=== PATIENT | female | born 1950 | race African-American/Black ===

== ENCOUNTER 2018-09-30 05:09 | Day surgery (SDC) | payer MEDICARE, OTHER ==
--- NOTE | 2018-09-27 10:08 | Opthalmology H&P ---
Ophthalmology H&P H&P Chief Complaint: decreased vision in left eye HPI Vision Affects Ability to: read, drive, manage personal affairs HPI Narrative Blurry Vision Exam Visual Acuity: OD 20/160 OS 20/160 Tension: OD 16 OS 20 Eye Exam: normal OU: external exam, palpebral fissure-width, marginal reflex distance, levator function, corneas, anterior chambers, lens; findings: fundus exam - NPDR-mild Left Eye Assessment/Plan Treatment Plan: cataract extraction w/ lens implant Goals of Treatment: improvement of vision, enhance quality of life Attestation Attestation The risks and benefits of the surgery as well as alternative procedures were explained to the patient in detail. Frankie Barrientos MD Sep 27, 2018 10:07
--- NOTE | 2018-09-27 10:09 | Pre-Procedure Note/Attestation ---
Pre-Procedure Note/Attestation Complete Prior to Procedure Planned Procedure: left Procedure Narrative: Cataract Extraction With Intraocular Lens Implant Left Eye Indications for Procedure Pre-Operative Diagnosis: Cataract Left Eye Attestation I attest that I discussed the nature of the procedure; its benefits; risks and complications; and alternatives (and the risks and benefits of such alternatives ), prior to the procedure, with the patient (or the patient's legal safety representative). I attest that, if there was a reasonable possibility of needing a blood transfusion, the patient (or the patient's legal safety representative) was given the [facility] standardized written summary, pursuant to the Joel Andrew Blood Safety Act ([place] Health and Safety Code # 1645, as amended). I attest that I re-evaluated the patient just prior to the surgery and that there has been no change in the patient's H&P, except as documented below: Frankie Barrientos MD Sep 27, 2018 10:09
[~2018-09-30] VITALS: Ht 165.1 cm; Wt 95.3 kg
[2018-09-30] VITALS (10 sets, daily range): BP systolic 99–136; BP diastolic 54–73
[2018-09-30] MEDS: Diclofenac Sod 0.1% Op Soln LEFT EYE SCH ×3 (05:52→06:11)
[2018-09-30] MEDS: Cyclopentolate 1% Opth Sol 2ml LEFT EYE SCH ×3 (05:52→06:11)
[2018-09-30] MEDS: Tobramycin Op Soln 0.3% 5ml LEFT EYE SCH ×3 (05:53→06:11)
[2018-09-30] MEDS: Phenylephrine 10% Opth Soln 5ml LEFT EYE SCH ×3 (05:53→06:11)
[2018-09-30] MEDS: Tropicamide 1% Opth 15ml Soln LEFT EYE SCH ×3 (05:53→06:11)
[2018-09-30] MEDS ORDERED: JANUMET 50-1,01 EACH ORAL (06:10)
[2018-09-30] MEDS ORDERED: GLIPIZIDE5 MG ORAL (06:10)
[2018-09-30] MEDS ORDERED: Proparacaine 0.5% Opth Soln 15ml LEFT EYE ONE (07:00)
[2018-09-30] MEDS ORDERED: Akten 3.5% 1ml Btl LEFT EYE ONE (07:00)
[2018-09-30] MEDS ORDERED: Tetracaine 0.5% Opth 4ml Soln LEFT EYE ONE (07:00)
[2018-09-30] MEDS ORDERED: EPINEPHrine 1mg/1ml Amp ONE (07:02)
[2018-09-30] MEDS ORDERED: acetaZOLAMIDE 500mg Inj ONE (07:02)
[2018-09-30] MEDS ORDERED: Lidocaine 4% Amp ONE (07:02)
[2018-09-30] MEDS ORDERED: Carbachol 0.01% Op Soln 1.5ml vial ONE (07:02)
[2018-09-30] MEDS ORDERED: BSS 15ml BTL ONE (07:03)
[2018-09-30] MEDS ORDERED: BSS 500ml btl ONE (07:03)
[2018-09-30] MEDS ORDERED: Povidone-Iodine 5% opth solution ONE (07:03)
[2018-09-30] MEDS ORDERED: Sodium Hyaluronate 14 mg/ml 0.85ml ONE (07:04)
[2018-09-30] MEDS ORDERED: Lidocaine 1% MPF 10mg/ml 5ml ONE ×2 (07:05→07:20)
[2018-09-30] MEDS ORDERED: Lidocaine 2% MPF 5ml Vial INJ ONE (07:05)
[2018-09-30] MEDS ORDERED: Bupivacaine 0.75% 30ml vial INJ ONE (07:05)
[2018-09-30] MEDS ORDERED: LR 1000ml 1,000 ML IVLG SCH (07:12)
--- NOTE | 2018-09-30 07:12 | Anethesia Preoperative Eval ---
Anesthesia Pre-op PMH/ROS General Date of Evaluation: Sep 30, 2018 Anesthesiologist: David ASA Score: ASA 3 Mallampati Score Class I : Soft palate, uvula, fauces, pillars visible Class II: Soft palate, uvula, fauces visible Class III: Soft palate, base of uvula visible Class IV: Only hard plate visible Mallampati Classification: Class II Surgeon: Iliana Diagnosis: Left cataract Surgical Procedure: Left cataract extraction with IOL Anesthesia History: none Family History: no anesthesia problems Allergies: Uncoded Allergies: IV CONTRAST (Allergy, Severe, 09/30/18) ITCHY MOUTH,TONGUE SWELLING,BODY ITCHING Medications: see eMAR Patient NPO?: Yes NPO Date: Sep 29, 2018 NPO Time: 20:00 Past Medical History Cardiovascular: Reports: HTN; Denies: CAD, [place], valve dz, arrhythmia, other Pulmonary: Reports: other - Left lung Cancer s/p lobectomy; Denies: asthma, COPD, JASWANT Gastrointestinal/Genitourinary: Denies: GERD, CRI, ESRD, other Neurologic/Psychiatric: Denies: dementia, CVA, depression/anxiety, TIA, other Endocrine: Reports: DM; Denies: hypothyroidism, steroids, other HEENT: Reports: cataract (L), cataract (R); Denies: glaucoma, [place] (L), [place] (R), other Hematology/Immune: Reports: other - liver cancer; Denies: anemia, DVT, bleeding disorder Musculoskeletal/Integumentary: Denies: OA, RA, DJD, DDD, edema, other Other: obesity PSxH Narrative: right knee, shoulder, elbow, left lobectomy Anesthesia Pre-op Phys. Exam Physician Exam Last Vital Signs Date Time Temp Pulse Resp B/P (MAP) Pulse Ox O2 Delivery O2 Flow Rate FiO2 09/30/18 06:22 97.5 77 20 136/73 97 Room Air Constitutional: NAD Cardiovascular: RRR Respiratory: CTA Airway Exam Mallampati Score: Class III MO: limited ROM: limited Anesthesia Pre-op A/P Labs see chart Studies Pre-op Studies: EKG - sr Risk Assessment & Plan Assessment: ASA III Plan: MAC Status Change Before Surgery: No Pre-Antibiotics Drug: N/A Yanna Torres MD Sep 30, 2018 07:12
[2018-09-30] MEDS ORDERED: DiphenhydrAMINE 50mg/ml Inj IVP PRN (07:15)
[2018-09-30] MEDS ORDERED: Midazolam 2mg/2ml Inj ONE (07:20)
[2018-09-30] MEDS ORDERED: fentaNYL 100 mcg/2 mL IV ONE (07:20)
--- NOTE | 2018-09-30 08:29 | Immediate Post-Op Evaluation ---
Immediate Post-Op Evalulation Immediate Post-Op Evalulation Procedure: Left cataract extraction with IOL Date of Evaluation: Sep 30, 2018 Time of Evaluation: 08:31 IV Fluids: 300 Blood Products: 0 Estimated Blood Loss: 0 Urinary Output: 0 Blood Pressure Systolic: 113 Blood Pressure Diastolic: 58 Pulse Rate: 72 Respiratory Rate: 16 O2 Sat by Pulse Oximetry: 100 Temperature (Fahrenheit): 97.7 Pain Score (1-10): 0 Nausea: No Vomiting: No Complications 0 Patient Status: awake, reacts, patent, none Hydration Status: adequate Drug: N/a Yanna Torres MD Sep 30, 2018 08:29
--- NOTE | 2018-09-30 08:30 | 48 Hour Post Anesthesia Eval ---
Post Anesthesia Evaluation Procedure: Left cataract extraction with IOL Date of Evaluation: Sep 30, 2018 Airway: patent Nausea: No Vomiting: No Pain Intensity: 0 Hydration Status: adequate Cardiopulmonary Status: at baseline Mental Status/LOC: patient returned to baseline Post-Anesthesia Complications: 0 Follow-up care needed: ready to discharge Yanna Torres MD Sep 30, 2018 08:30
--- NOTE | 2018-10-01 13:20 | Brief Operative Note ---
Immediate Post Operative Note Operative Note Chief Complaint: blurry vision Pre-op Diagnosis: Nuclear Cataract Left Eye Procedure: phaco with IOL Post-op Diagnosis: Pseudophakia Post-op Diagnosis: same as pre-op Findings: consistent w/pre-op dx studies Surgeon: Iliana Anesthesiologist: Isidoro Anesthesia: MAC Specimen: none Complications: none Condition: stable Fluids: LR Estimated Blood Loss: none Drains: none Implant(s) used?: Yes Frankie Barrientos MD Oct 01, 2018 13:20
--- NOTE | 2018-10-01 13:21 | Operative Note - PDOC ---
Operative Note Operative Note Date of Operation/Procedure: Sep 30, 2018 Chief Complaint: blurry vision Pre-op Diagnosis: Nuclear Cataract Left Eye Procedure: phaco with IOL Post-op Diagnosis: Pseudophakia Post-op Diagnosis: same as pre-op Operative Findings: consistent w/pre-op dx studies Surgeon: Iliana Anesthesiologist: Isidoro Anesthesia: MAC Specimen: none Complications: none Condition: stable Fluids: LR Estimated Blood Loss: none Drains: none Implant(s) used?: Yes Indications for Procedure cataract Description of Procedure This patient has been complaining visually significant cataract in the affected eye with the best corrected visual acuity under moderate glare conditions worse. The patient complains of difficulties with glare in performing activities of daily living and wants to manage personal affairs with comfort and accuracy and see well enough to move with safety at home and outdoors. The risks, benefits and alternatives of the procedure were discussed with the patient in the office prior to scheduling surgery. All questions from the patient were answered after the surgical procedure was explained in detail. The risks of the procedure as explained to the patient include, but are not limited to, pain, infection, bleeding, loss of vision, retinal detachment, need for further surgery, loss of lens nucleus, double vision, etc. Alternative procedures were discussed which include, to do nothing or seek a second opinion. Informed consent for this procedure was obtained from the patient. The patient was referred to a primary care physician for a cardiopulmonary clearance prior to surgery, after proper evaluation was done patient was properly scheduled for outpatient surgery. The patient was brought to the operating room where the anesthesiologist established I.V. lines and cardiac monitoring leads. Mild intravenous sedation was administered. The patient was then prepared with a 5% solution of povidone -iodine to the conjunctival fornix and lashes, and a 5% solution of povidone- iodine to the lids and periorbital skin. The patient was then draped in the usual sterile fashion. A lid speculum was then placed in the operative eye. A keratome blade was then used to create a biplanar incision into the anterior chamber. Viscoelastics was then instilled into the anterior chamber. A 3-mm single pass clear corneal incision was made just anterior to the vascular arcade of the temporal limbus using a keratome. Anterior Curvilinear capsulorrhexis was created with utrata forceps. The nucleus was hydrodissected and hydrodelineated, and was freely movable in the capsular bag. The lens nucleus was then phacoemulsified. Following the deep groove formation, the lens was split bimanually and the resultant quadrants and epicortex removed under vacuum burst-mode phacoemulsification. Peripheral cortex was removed with the irrigation and aspiration handpiece. The capsular bag was expanded with viscoelastic. The implant was check for proper power and sized. The implant was inspected under the microscope and found to be free of defects. The implant was inserted into the cartridge system under viscoelastic and placed in the capsular bag. Viscoelastics was removed from the anterior chamber using the irrigation and aspiration unit. The corneal wound was then tested for leaks and none were found. The lid speculum were then removed. Sponge and needle counts were correct. An eye patch and shield were placed over the operative eye. The patient was taken to the recovery room in stable condition. There were no complications. The patient tolerated the procedure well. The patient was then transferred to the ambulatory surgery unit in stable and satisfactory condition , was given detailed written instructions and asked to follow up in the office the next day. Frankie Barrientos MD Oct 01, 2018 13:21
[2018-10-01] MEDS ORDERED: HYDROCHLOROTHIA25 MG ORAL (14:22)
[2018-10-01] MEDS ORDERED: LOSARTAN POTASS50 MG ORAL (14:23)
[2018-10-01] MEDS ORDERED: AMLODIPINE BESY10 MG ORAL (14:24)
[2018-10-01] MEDS ORDERED: ATORVASTATIN CA20 MG ORAL (14:24)
[2018-10-01] MEDS ORDERED: ASPIR 8181 MG ORAL (14:25)
[2018-10-01] MEDS ORDERED: TEMODAR100 MG PO (14:29)
[2018-10-01] MEDS ORDERED: OMEPRAZOLE20 M2 ORAL (14:31)
[2018-10-01] MEDS ORDERED: PROAIR HFA8.5 GM INH (14:32)
== END 2018-09-30 10:00 | disposition home or self-care (01) ==
LOC: SUR 05:09
DX: H25.12 Age-related nuclear cataract, left eye (principal); I10 Essential (primary) hypertension; E11.9 Type 2 diabetes mellitus without complications; E66.9 Obesity, unspecified; Z68.34 Body mass index [BMI] 34.0-34.9, adult; Z85.118 Personal history of other malignant neoplasm of bronchus and lung
CPT/HCPCS: 66984; 82962; J0171; J1120; J2250; J3010; J3370; J3490; V2632; 94003; 94150